=== PATIENT | female | born 1970 | race Hispanic/Latino ===

== ENCOUNTER 2016-11-11 02:31 | Emergency (ER) | payer OTHER ==
--- NOTE | 2016-11-11 05:00 | XRay Report ---
FINAL REPORT PROCEDURE: XR HAND 3 LT TECHNIQUE: LEFT hand radiographs, AP, lateral, and oblique views. CPT 40494-LC HISTORY: rt hand pain, injury COMPARISON: No prior studies are available for comparison. FINDINGS: Fracture (s) and/or Dislocation(s): There is a slightly displaced fracture involving the tuft of the distal phalanx 3rd digit left hand. The remaining osseous structures are intact.. Alignment: Normal . Joint space(s): Normal . Soft tissues: Soft tissue injury and swelling over the distal 3rd digit.. Bone mineralization: Normal . Foreign bodies: None . IMPRESSION: There is a slightly displaced fracture involving the tuft of the distal phalanx 3rd digit left hand. There is associated soft tissue injury and swelling in this region..
[2016-11-11] MEDS ORDERED: NORCO 5/325 PO ONE (05:50)
--- NOTE | 2016-11-11 07:31 | Emergency Department Report ---
Upper Extremity - HPI Chief Complaint: Extremity Injury, Upper Stated Complaint: CRUSHED FINGER LEFT HAND Time Seen by Provider: 11/11/16 07:15 Upper Extremity: Left Middle Finger (laceration, pain bleeding) Occurred When: Today Mechanism: Other (Finger cauught between objects) Symptoms: Yes Pain with Movement (left middle finger), Yes Deformity (middle finger.Lt), Yes Limited Range of Movement (left middle finger), Yes Swelling ( left middle finger around nailbed), Yes Bruising/Ecchymosis (left middle finger distal phalanx and nail), Yes Laceration or Abrasion (left middle finger at distal phalanx), No Numbness, No Weakness Other History: patient here reported that she had injury atwork. She says finger smashed by tire and axil. She reports pain 10 out of 10 and said she put ice and bandage to finger. She reports laceration to her finger. Denies any numbness or tingling to finger. She is here with her coworker and her . Tetanus vaccine is not up-to-date ED Review of Systems ROS: Stated complaint: CRUSHED FINGER LEFT HAND Other details as noted in HPI Comment: All other systems reviewed and negative Constitutional: denies: chills, fever Eyes: eye discharge Respiratory: no symptoms reported Cardiovascular: denies: chest pain, palpitations, edema, syncope Gastrointestinal: denies: nausea, vomiting Musculoskeletal: joint swelling, arthralgia. denies: back pain, myalgia Skin: change in hair/nails, other (laceration) Neurological: denies: headache, numbness, paresthesias, confusion, abnormal gait , vertigo Psychiatric: anxiety ED Past Medical Hx - Past Medical History Previous Medical History?: No - Surgical History Past Surgical History?: Yes Additional Surgical History: tumor removed from neck - Family History Family history: no significant - Social History Smoking Status: Former Smoker Substance Use Type: Alcohol - Medications Home Medications: Home Medications Medication Instructions Recorded Confirmed Last Taken Type Cephalexin [Keflex] 500 mg PO Q8HR #30 cap 11/11/16 Unknown Rx Promethazine [Phenergan TAB] 25 mg PO Q8HR PRN #15 tab 11/11/16 Unknown Rx Sulfamethoxazole/Trimethoprim 1 each PO BID #20 tablet 11/11/16 Unknown Rx [Bactrim DS TAB] diphenhydrAMINE [Benadryl CAP] 50 mg PO Q8HR PRN #15 capsule 11/11/16 Unknown Rx oxyCODONE /ACETAMINOPHEN [Percocet 1 tab PO Q6HR PRN #20 tablet 11/11/16 Unknown Rx 5/325] Upper Extremity Exam - Exam General: Vital signs noted. No distress. Alert and acting appropriately. This is a 46-year-old female well-nourished well-developed that is anxious but nontoxic in appearance. Head and Torso: No HEENT Abnormality (normal exam), No Neck Tenderness (normal exam), No Chest/Lungs Abnormality (normal exam), No Abdominal Tenderness ( normal exam), No Back Tenderness (normal exam) Shoulder Exam: Yes Normal Range of Motion in Shoulder, No Shoulder Tenderness, No Clavicle Tenderness, No Shoulder Deformity, No AC Joint Tenderness Arm Exam: No Arm/Humerus Tenderness, No Arm Deformity Elbow: Yes Normal Range of Motion in Elbow, No Elbow Tenderness, No Elbow Deformity Forearm: No Forearm Tenderness, No Forearm Deformity, No Pain with Pronation, No Pain with Supination Wrist: Yes Normal ROM in Wrist, No Wrist Tenderness, No Wrist Deformity, No Snuffbox Tenderness, No Pain with Axial Thumb Compression Hand: Yes Digit Tenderness (left distal phalanx, middle finger), Yes Digit(s) Deformity (tuft of left middle finger), No Hand Tenderness, No Hand Deformity, No Normal ROM in Digit(s) (Limited range of motion to left middle finger especially distally), No Tendon Dysfunction CMS Exam: Yes Broken Skin (Lt middle finger nail bed and around tift of finger. Circular, avulsed. ), Yes Normal Distal Pulses, Yes Normal Capillary Refill, Yes Normal Distal Sensation ED Course Vital Signs 11/11/16 02:41 Temperature 98.6 F Pulse Rate 75 Respiratory 20 Rate Blood Pressure 142/74 Blood Pressure 142/74 [Right] O2 Sat by Pulse 99 Oximetry Vital Signs 11/11/16 11/11/16 11/11/16 02:41 07:54 10:32 Temperature 98.6 F Pulse Rate 75 68 Respiratory 20 16 16 Rate Blood Pressure 142/74 Blood Pressure 142/74 136/81 [Right] O2 Sat by Pulse 99 99 Oximetry - Reevaluation(s) Reevaluation #1: 11/11/16 09:02 She given Percocet 5/325 2 tablets by mouth, Valium 10 mg IM, Ancef 1 g IM and emergency room prior to procedure. Patient is very anxious and nervous. Betadine soak in process. Reevaluation #2: 11/11/16 09:25 Patient digitally blocked to left middle finger. 2% lidocaine with epi use. Injured area irrigated with 500 cc of normal saline. Reevaluation #3: 11/11/16 10:04 Patient stable. See procedure note for details on laceration repair. - Laceration /Wound Repair Left Distal Finger Wound Location: upper extremity (left middle finger distally.) Wound Length (cm): 2 Wound's Depth, Shape: into muscle, irregular, nail-avulsed (nail removed from left middle finger nail bed) Wound Explored: clean Irrigated w/ Saline (ccs): 250 Betadine Prep?: Yes Anesthesia: 1% Lidocaine Volume Anesthetic (ccs): 6 (2% lidocaine) Wound Debrided: extensive Wound Repaired With: sutures Suture Size/Type: 5:0 Number of Sutures: 7 Layer Closure?: Yes Deep Layer Suture Size/Type: 5:0 (Vicryl) Number Deep Layer Sutures: 4 Sterile Dressing Applied?: Yes Progress: Tetanus vaccine given - Nerve Block Consent Obtained: verbal consent Time Out Performed: Yes Local Anesthetic Used: Lidocaine 2% Amount of anesthesia used: 6 Side: left Nerve Blocks: digital Procedure Successful: Yes Complications: none Patient Tolerated Procedure: well - Orthopedic Splinting/Casting Injury #1 Side: left Upper Extremity Injury Location: finger (Lt middle finger) Upper Extremity Immobilizer: aluminum form splint ED Medical Decision Making - Radiology Data Radiology results: report reviewed Patient's with slightly displaced fracture involving the tuft of the distal phalanx third digit left hand. The remaining and osseous structures are intact. Alignment normal joint spaces normal soft tissue injury and swelling over the distal third digit bone mineralization normal. foreign body none - Medical Decision Making ED course: Patient with slightly displaced fracture laceration and to left distal phalanx middle finger. She is also with nail damage to nail bed. Patient was given Valium 10 mg IM, Ancef 1 g IM, Percocet 5/325 mg 2 tablets by mouth prior to procedure. She was very anxious. Patient was also given tetanus vaccine K she said it was not up-to-date. She was updated on her x-ray result which revealed that she had slightly nondisplaced fracture to the top of her third middle finger and also laceration to distal third middle finger. After patient anxiety resolved, 2% lidocaine a total of 6 cc used to digitally blocked left middle finger. See procedure note for details on splinting, laceration repair and digital block . Patient is stable and discharged home with her in stable condition. She was given prescription for Percocet, Phenergan, Bactrim, Keflex and Benadryl. I discussed with her that she will need to follow-up with orthopedic doctor as recommended in her discharge paperwork. I also discussed with her the risks of infection and she needs to take all her antibiotic as prescribed. She voices understanding of diagnosis and treatment plan and discharged home with her family in stable condition. Critical care attestation.: If time is entered above; I have spent that time in minutes in the direct care of this critically ill patient, excluding procedure time. ED Disposition Clinical Impression: Pain of left middle finger Fracture of distal phalanx of left middle finger Qualifiers: Encounter type: initial encounter Fracture type: open Fracture alignment: displaced Qualified Code(s): S62.633B - Displaced fracture of distal phalanx of left middle finger, initial encounter for open fracture Laceration of left middle finger with damage to nail Qualifiers: Encounter type: initial encounter Foreign body presence: without foreign body Qualified Code(s): S61.313A - Laceration without foreign body of left middle finger with damage to nail, initial encounter Injury of left middle finger Qualifiers: Encounter type: initial encounter Qualified Code(s): S69.92XA - Unspecified injury of left wrist, hand and finger(s), initial encounter Disposition: TO HOME OR SELFCARE Is pt being admited?: No Does the pt Need Aspirin: No Condition: Stable Instructions: Finger Fracture (ED), Toenail/Fingernail Removal (ED), Splint Care (ED), Finger Laceration (ED) Additional Instructions: take oral antibiotic as prescribed Do not drive or operate heavy machinery while taking Percocet, Phenergan or Benadryl. Benadryl is to prevent itching and from Percocet and Phenergan is to prevent nausea from Percocet. follow-up with orthopedic doctor as instructed. Keep bulky dressing on and splint on. You can remove splint to take dressing off in 48 hours and then repacked keep area clean and replace with sterile gauze dressing and splint. Please return to ED to have stitches removal from finger and 7 days. Prescriptions: Cephalexin [Keflex] 500 mg PO Q8HR #30 cap diphenhydrAMINE [Benadryl CAP] 50 mg PO Q8HR PRN #15 capsule PRN Reason: Itching oxyCODONE /ACETAMINOPHEN [Percocet 5/325] 1 tab PO Q6HR PRN #20 tablet PRN Reason: Pain Promethazine [Phenergan TAB] 25 mg PO Q8HR PRN #15 tab PRN Reason: Nausea Sulfamethoxazole/Trimethoprim [Bactrim DS TAB] 1 each PO BID #20 tablet Referrals: PRIMARY CAREMD [Primary Care Provider] - 3-5 Days DIANA KAPOOR MD [Staff Physician] - 3-5 Days Forms: Accompanied Note, Work/School Release Form(ED)
[2016-11-11] MEDS ORDERED: ANCEF IM ONE (07:32)
[2016-11-11] MEDS ORDERED: VALIUM PO ONE (07:32)
[2016-11-11] MEDS ORDERED: PERCOCET 5/325 PO ONE (07:32)
[2016-11-11] MEDS ORDERED: NACL 0.9% IR ONE (07:33)
[2016-11-11] MEDS ORDERED: VALIUM IV ONE (07:37)
[2016-11-11] MEDS ORDERED: VALIUM IM ONE (07:39)
[2016-11-11] MEDS ORDERED: XYLOCAINE MPF 2% INFILTRATI ONE (08:00)
[2016-11-11] MEDS ORDERED: XYLOCAINE 2% INFILTRATI ONE (08:02)
[2016-11-11] MEDS ORDERED: BOOSTRIX IM ONE (08:32)
[2016-11-11 10:33] VITALS: BP 136/81
== END 2016-11-11 10:48 | disposition home or self-care (01) ==
LOC: ED 02:31
DX: S62.633B Displaced fracture of distal phalanx of left middle finger, initial encounter for open fracture (principal); S69.92XA Unspecified injury of left wrist, hand and finger(s), initial encounter; S61.313A Laceration without foreign body of left middle finger with damage to nail, initial encounter; Z87.891 Personal history of nicotine dependence; W23.0XXA Caught, crushed, jammed, or pinched between moving objects, initial encounter; Y93.89 Activity, other specified; Y99.9 Unspecified external cause status; Y92.89 Other specified places as the place of occurrence of the external cause
CPT/HCPCS: 11760; 73130; 90471; 90715; 96372; 99284; J0690; J3360